=== PATIENT | female | born 1995 | race Caucasian/White ===

== ENCOUNTER → 2020-03-09 22:10 | Observation (INO) ==
[2020-03-09 21:46] LABS: Bacteria,Urine Few per hpf (None-Few); Bilirubin,Urine Negative (Negative); Blood,Urine Small (Negative); Clarity,Urine Clear (Clear); Color,Urine Light-Yellow (Yellow); Glucose,Urine (UA) 70 mg/dL (Normal); Ketones,Urine Negative (Negative); Leukocyte Esterase,Urine Negative (Negative); Mucus,Urine Few per lpf (None-Few); Nitrite,Urine Negative (Negative); PH,Urine 6.5 pH Units (5.0-8.0); Protein,Urine Negative (Neg-Trace); Specific Gravity,Urine 1.015 (1.010-1.025); Squamous Epithelial Cell,Urine Few per hpf (None-Few); Urobilinogen,Urine Normal (Normal); WBC,Urine 0-3 per hpf (0-3)
== END | disposition home or self-care (01) ==
LOC: 1NENULAB
PROVIDERS: ADMIT Advanced Practice Midwife; ATTEND Advanced Practice Midwife

== ENCOUNTER → 2020-03-21 00:33 | Observation (INO) ==
[2020-03-20 23:09] LABS: Amphetamine Screen,Urine Negative ng/mL (Cutoff=1000); Barbiturate Screen,Urine Positive ng/mL (Cutoff=200); Benzodiazepines Screen,Urine Negative ng/mL (Cutoff=200); Cannabinoid Screen,Urine Negative ng/mL (Cutoff = 50); Cocaine Screen,Urine Negative ng/mL (Cutoff= 300); Opiate Screen,Urine Negative ng/mL (Cutoff=300); Phencyclidine Screen,Urine Negative ng/mL (Cutoff=25)
[~2020-03-21 00:33] MED LIST: Metoclopramide 10 MG/2 ML VIAL IVP ONE; Ringers Solution, Lactated 1,000 ML IVC ONE; Ringers Solution, Lactated 1,000 ML IVC SCH
== END | disposition home or self-care (01) ==
LOC: 1NENULAB
PROVIDERS: ADMIT Advanced Practice Midwife; ATTEND Advanced Practice Midwife

== ENCOUNTER → 2020-04-05 02:25 | Observation (INO) | END | disposition home or self-care (01) | LOC: 1NENULAB | PROVIDERS: ADMIT Obstetrics & Gynecology; ATTEND Obstetrics & Gynecology ==

== ENCOUNTER → 2020-05-15 22:42 | Observation (INO) | END | disposition home or self-care (01) | LOC: 1NENULAB | PROVIDERS: ADMIT Obstetrics & Gynecology; ATTEND Obstetrics & Gynecology ==

== ENCOUNTER 2020-05-20 07:48 | Inpatient (IN) ==
[2020-05-20] MEDS ORDERED: Famotidine 20 MG/2 ML VIAL IVP PRN (08:04)
[2020-05-20] MEDS ORDERED: Lidocaine 1% 20 ML MDV INFILT PRN (08:04)
[2020-05-20] MEDS ORDERED: Naloxone 0.4 MG/ML INJ IVP PRN (08:04)
[2020-05-20] MEDS ORDERED: Azithromycin 500 MG in 0.9 % Sodium Chloride 250 ML IVPB PRN (08:04)
[2020-05-20] MEDS ORDERED: Ondansetron 4 MG/2 ML VIAL IVP PRN (08:04)
[2020-05-20] MEDS ORDERED: Metoclopramide 10 MG/2 ML VIAL IVP PRN (08:04)
[2020-05-20] MEDS ORDERED: *HR* FentaNYL (PF) 100 MCG/2 ML VIAL IVP PRN (08:04)
[2020-05-20] MEDS ORDERED: Oxytocin 20 units/ LR 1000 mL 20 UNIT/1,000 ML BAG IVC SCH ×2 (08:15→18:06)
[2020-05-20] MEDS ORDERED: Ringers Solution, Lactated 1,000 ML IVC SCH (08:15)
[2020-05-20 09:05] LABS: Basophils % 0.3 %; Hemoglobin 14.2 g/dL (11.5-15.4); Mean Corpuscular Volume 91.4 fL (83.0-100.0); Red Cell Distribution Width 13.3 % (11.5-14.5)
[2020-05-20 09:06] LABS: Eosinophils # 0.3 K/mcL (0.0-0.6); Eosinophils % 2.6 %; Hematocrit 42.7 % (35.3-44.9); Immature Granulocytes % 0.3 % (0-4); Immature Platelets 3.2 % (1.1-6.1); Lymphocytes # 3.7 K/mcL (0.6-4.6); Lymphocytes % 31.4 %; Mean Corpuscular HGB Conc 33.3 g/dL (31.6-35.5); Mean Corpuscular Hemoglobin 30.4 pg (28.0-33.3); Mean Platelet Volume 9.8 fL (9.4-12.4); Monocytes # 0.9 K/mcL (0.0-1.3); Neutrophils # 6.7 K/mcL (1.6-8.9); Platelet Count 270 K/mcL (140-400); Red Blood Count 4.67 M/mcL (3.82-4.97); Segmented Neutrophils % 57.4 %; White Blood Count 11.7 K/mcL (4.3-11.1)
[2020-05-20 09:21] LABS: Amphetamine Screen,Urine Negative ng/mL (Cutoff=1000); Barbiturate Screen,Urine Positive ng/mL (Cutoff=200); Benzodiazepines Screen,Urine Negative ng/mL (Cutoff=200); Cannabinoid Screen,Urine Negative ng/mL (Cutoff = 50); Cocaine Screen,Urine Negative ng/mL (Cutoff= 300); Opiate Screen,Urine Negative ng/mL (Cutoff=300); Phencyclidine Screen,Urine Negative ng/mL (Cutoff=25)
[2020-05-20] MEDS ORDERED: EPHEDrine 50 MG/ML VIAL IVP PRN (11:03)
[2020-05-20] MEDS ORDERED: Epidural Premix (fent/bupiv) 110 ML EP SCH (11:15)
[2020-05-20] MEDS ORDERED: Ondansetron 4 MG/2 ML VIAL IVP ONE (12:33)
[2020-05-20] MEDS ORDERED: Measles/Mumps/Rubella Vacc 0.5 ML VIAL SQ PRN (18:06)
[2020-05-20] MEDS ORDERED: Ibuprofen 600 MG TABLET PO PRN (18:06)
[2020-05-20] MEDS: Acetaminophen 325 MG TABLET PO PRN (18:22)
[2020-05-21] MEDS: Acetaminophen 325 MG TABLET PO PRN (04:22)
[2020-05-21] MEDS ORDERED: Acetaminophen/Butalbital/CaffeineTABLET PO PRN (04:42)
[2020-05-21 05:17] LABS: Basophils % 0.2 %; Eosinophils # 0.4 K/mcL (0.0-0.6); Eosinophils % 2.3 %; Hematocrit 40.7 % (35.3-44.9); Hemoglobin 13.4 g/dL (11.5-15.4); Immature Granulocytes % 0.4 % (0-4); Lymphocytes # 4.5 K/mcL (0.6-4.6); Lymphocytes % 28.1 %; Mean Corpuscular HGB Conc 32.9 g/dL (31.6-35.5); Mean Corpuscular Hemoglobin 30.3 pg (28.0-33.3); Mean Corpuscular Volume 92.1 fL (83.0-100.0); Mean Platelet Volume 9.3 fL (9.4-12.4); Monocytes # 1.4 K/mcL (0.0-1.3); Monocytes % 8.8 %; Neutrophils # 9.7 K/mcL (1.6-8.9); Platelet Count 252 K/mcL (140-400); Red Blood Count 4.42 M/mcL (3.82-4.97); Red Cell Distribution Width 13.2 % (11.5-14.5); Segmented Neutrophils % 60.2 %; White Blood Count 16.1 K/mcL (4.3-11.1)
[2020-05-21 07:51] VITALS: BP 107/68
[2020-05-21] MEDS ORDERED: *HR* OxyCODONE/APAP 5/325 TABLET PO PRN (08:19)
[2020-05-21] MEDS ORDERED: FLUoxetine 20 MG CAPSULE PO SCH (09:00)
[2020-05-21] MEDS ORDERED: Prenatal Vit/FA 1 EACH TABLET PO SCH (09:00)
[2020-05-21] MEDS ORDERED: Etonogestrel 68 MG IMPLANT IL ONE (10:51)
[2020-05-21] MEDS ORDERED: Lidocaine 1% 20 ML MDV ONE (12:31)
== END 2020-05-21 14:23 | disposition home or self-care (01) | DRG 806 ==
LOC: 1NENULAB 07:48 → 1NENUOBS 17:06
PROVIDERS: ADMIT Obstetrics & Gynecology; ATTEND Obstetrics & Gynecology

== ENCOUNTER 2020-07-20 20:53 | Observation (INO) ==
[2020-07-20 21:34] LABS: Basophils % 0.6 %; Eosinophils # 0.3 K/mcL (0.0-0.6); Eosinophils % 4.6 %; Hematocrit 47.2 % (35.3-44.9); Hemoglobin 15.4 g/dL (11.5-15.4); Immature Granulocytes % 0.2 % (0-4); Lymphocytes # 2.9 K/mcL (0.6-4.6); Mean Corpuscular HGB Conc 32.6 g/dL (31.6-35.5); Mean Corpuscular Hemoglobin 29.4 pg (28.0-33.3); Mean Corpuscular Volume 90.2 fL (83.0-100.0); Mean Platelet Volume 8.9 fL (9.4-12.4); Monocytes # 0.8 K/mcL (0.0-1.3); Monocytes % 12.1 %; Neutrophils # 2.3 K/mcL (1.6-8.9); Platelet Count 399 K/mcL (140-400); Red Blood Count 5.23 M/mcL (3.82-4.97); Red Cell Distribution Width 12.5 % (11.5-14.5); Segmented Neutrophils % 36.5 %; White Blood Count 6.3 K/mcL (4.3-11.1)
[2020-07-20] MEDS ORDERED: *HR* LORazepam 2 MG/ML VIAL IVP ONE (21:41)
[2020-07-20 21:54] LABS: Bilirubin,Urine Negative (Negative); Blood,Urine Moderate (Negative); Clarity,Urine Clear (Clear); Color,Urine Light-Yellow (Yellow); Glucose,Urine (UA) Normal (Normal); Hyaline Casts,Urine Few per lpf (None Seen); Ketones,Urine Negative (Negative); Leukocyte Esterase,Urine Negative (Negative); Mucus,Urine Few per lpf (None-Few); Nitrite,Urine Negative (Negative); Protein,Urine Trace mg/dL (Neg-Trace); RBC,Urine 15-30 per hpf (0-3); Specific Gravity,Urine 1.018 (1.010-1.025); Squamous Epithelial Cell,Urine Few per hpf (None-Few); Urobilinogen,Urine Normal (Normal)
[2020-07-20 21:58] LABS: Alanine Aminotransferase 13 Units/L (7-52); Albumin 4.7 g/dL (3.5-5.7); Albumin/Globulin Ratio 1.6 (1.1-2.2); Alkaline Phosphatase 68 Units/L (34-104); Aspartate Amino Transferase 12 Units/L (13-39); BUN/Creatinine Ratio 4 (6-26); Bilirubin,Direct 0.1 mg/dL (0.0-0.2); Bilirubin,Indirect 0.3 mg/dL (0.0-1.0); Bilirubin,Total 0.4 mg/dL (0.3-1.0); Blood Urea Nitrogen 4 mg/dL (6-20); Calcium 9.8 mg/dL (8.6-10.3); Carbon Dioxide 20 mEq/L (23-29); Chloride 106 mEq/L (98-107); Creatine Kinase 65 Units/L (30-223); Glucose 104 mg/dL (70-105); Magnesium 2.3 mg/dL (1.6-2.6); Osmolality,Calculated 285 (280-300); Potassium 3.4 mEq/L (3.5-5.1); Sodium 139 mEq/L (136-145); Total Protein 7.7 g/dL (6.4-8.9); eGFR For African Americans > 60 (> 60); eGFR For Non-African Americans > 60 (> 60)
[2020-07-20 22:09] LABS: Thyroid Stimulating Hormone 0.515 mcIU/mL (0.340-5.600)
[2020-07-20 22:59] LABS: Troponin I < 0.03 ng/mL (< 0.04)
[2020-07-20 23:04] LABS: Amphetamine Screen,Urine Negative ng/mL (Cutoff=1000); Barbiturate Screen,Urine Negative ng/mL (Cutoff=200); Benzodiazepines Screen,Urine Positive ng/mL (Cutoff=200); Cannabinoid Screen,Urine Negative ng/mL (Cutoff = 50); Cocaine Screen,Urine Negative ng/mL (Cutoff= 300); Opiate Screen,Urine Positive ng/mL (Cutoff=300); Phencyclidine Screen,Urine Negative ng/mL (Cutoff=25)
[2020-07-21] MEDS ORDERED: Naloxone 0.4 MG/ML INJ IVP PRN (01:52)
[2020-07-21] MEDS ORDERED: Ondansetron 4 MG/2 ML VIAL IVP PRN (01:52)
[2020-07-21] MEDS ORDERED: Acetaminophen 325 MG TABLET PO PRN (01:52)
[2020-07-21 04:33] LABS: Hematocrit 43.9 % (35.3-44.9); Hemoglobin 14.3 g/dL (11.5-15.4); Mean Corpuscular HGB Conc 32.6 g/dL (31.6-35.5); Mean Corpuscular Hemoglobin 29.4 pg (28.0-33.3); Mean Corpuscular Volume 90.1 fL (83.0-100.0); Platelet Count 350 K/mcL (140-400); Red Blood Count 4.87 M/mcL (3.82-4.97); Red Cell Distribution Width 12.4 % (11.5-14.5); White Blood Count 7.1 K/mcL (4.3-11.1)
[2020-07-21 04:52] LABS: BUN/Creatinine Ratio 5 (6-26); Blood Urea Nitrogen 4 mg/dL (6-20); Calcium 9.5 mg/dL (8.6-10.3); Carbon Dioxide 24 mEq/L (23-29); Chloride 107 mEq/L (98-107); Glucose 75 mg/dL (70-105); Osmolality,Calculated 286 (280-300); Potassium 3.3 mEq/L (3.5-5.1); Sodium 140 mEq/L (136-145); eGFR For African Americans > 60 (> 60); eGFR For Non-African Americans > 60 (> 60)
[2020-07-21 04:53] LABS: Troponin I < 0.03 ng/mL (< 0.04)
[2020-07-21 05:06] LABS: Thyroid Stimulating Hormone 0.426 mcIU/mL (0.340-5.600)
[2020-07-21] MEDS ORDERED: ALPRAZolam 0.5 MG TABLET PO PRN (15:00)
[2020-07-21] MEDS: Pantoprazole 40 MG VIAL IVP SCH (15:34)
[2020-07-21] MEDS: *HR* LORazepam 0.5 MG TABLET PO PRN (15:35)
[2020-07-21] MEDS: *HR* OxyCODONE/APAP 5/325 TABLET PO PRN (18:41)
[2020-07-21] MEDS ORDERED: tiZANidine 4 MG TABLET PO SCH (21:00)
[2020-07-22] MEDS: *HR* LORazepam 0.5 MG TABLET PO PRN ×2 (06:00→14:19)
[2020-07-22 06:16] LABS: Basophils # 0.1 K/mcL (0.0-0.2); Basophils % 0.8 %; Eosinophils # 0.4 K/mcL (0.0-0.6); Eosinophils % 5.9 %; Hemoglobin 14.6 g/dL (11.5-15.4); Immature Granulocytes % 0.2 % (0-4); Lymphocytes # 2.5 K/mcL (0.6-4.6); Lymphocytes % 40.7 %; Mean Corpuscular HGB Conc 33.2 g/dL (31.6-35.5); Mean Corpuscular Hemoglobin 30.2 pg (28.0-33.3); Mean Corpuscular Volume 90.9 fL (83.0-100.0); Mean Platelet Volume 8.9 fL (9.4-12.4); Monocytes # 0.7 K/mcL (0.0-1.3); Monocytes % 11.5 %; Neutrophils # 2.5 K/mcL (1.6-8.9); Platelet Count 362 K/mcL (140-400); Red Blood Count 4.84 M/mcL (3.82-4.97); Red Cell Distribution Width 12.5 % (11.5-14.5); Segmented Neutrophils % 40.9 %; White Blood Count 6.2 K/mcL (4.3-11.1)
[2020-07-22 06:35] LABS: BUN/Creatinine Ratio 13 (6-26); Blood Urea Nitrogen 11 mg/dL (6-20); Calcium 9.6 mg/dL (8.6-10.3); Carbon Dioxide 23 mEq/L (23-29); Chloride 105 mEq/L (98-107); Glucose 93 mg/dL (70-105); Osmolality,Calculated 283 (280-300); Potassium 3.7 mEq/L (3.5-5.1); Sodium 137 mEq/L (136-145); eGFR For African Americans > 60 (> 60); eGFR For Non-African Americans > 60 (> 60)
[2020-07-22] MEDS ORDERED: *HR* Enoxaparin 40 MG/0.4 ML SYRINGE SQ SCH (07:00)
[2020-07-22] MEDS: Pantoprazole 40 MG VIAL IVP SCH (09:47)
[2020-07-22] MEDS: *HR* OxyCODONE/APAP 5/325 TABLET PO PRN ×2 (09:47→15:41)
[2020-07-22] MEDS ORDERED: Acetaminophen IV 1,000 MG/100 ML BAG IVPB ONE (13:01)
[2020-07-22 14:55] VITALS: BP 94/61
[2020-07-22] MEDS ORDERED: Cholecalciferol (D-3) 1,000 UNIT (25MCG) TABLET PO SCH (21:00)
== END 2020-07-22 15:55 | disposition home or self-care (01) ==
LOC: 3ANU 20:53 → EMEROOARM 20:53 → SUATTDRO 07-21 01:31 → 3ANU 07-21 02:30
PROVIDERS: ADMIT Internal Medicine; ATTEND Pharmacist

== ENCOUNTER 2021-05-16 16:01 | Inpatient (IN) ==
[2021-05-16 19:00] LABS: Basophils # 0.1 K/mcL (0.0-0.2); Basophils % 0.7 %; Eosinophils # 0.5 K/mcL (0.0-0.6); Eosinophils % 4.8 %; Hematocrit 45.9 % (35.3-44.9); Hemoglobin 15.7 g/dL (11.5-15.4); Immature Granulocytes % 0.2 % (0-4); Lymphocytes % 44.8 %; Mean Corpuscular HGB Conc 34.2 g/dL (31.6-35.5); Mean Corpuscular Hemoglobin 30.6 pg (28.0-33.3); Mean Corpuscular Volume 89.5 fL (83.0-100.0); Monocytes # 0.9 K/mcL (0.0-1.3); Neutrophils # 3.9 K/mcL (1.6-8.9); Platelet Count 360 K/mcL (140-400); Red Blood Count 5.13 M/mcL (3.82-4.97); Red Cell Distribution Width 11.8 % (11.5-14.5); Segmented Neutrophils % 40.5 %; White Blood Count 9.7 K/mcL (4.3-11.1)
[2021-05-16 19:02] LABS: Lymphocytes # 4.4 K/mcL (0.6-4.6)
[2021-05-16 19:03] LABS: Amphetamine Screen,Urine Positive ng/mL (Cutoff=1000); Barbiturate Screen,Urine Negative ng/mL (Cutoff=200); Benzodiazepines Screen,Urine Positive ng/mL (Cutoff=200); Cannabinoid Screen,Urine Negative ng/mL (Cutoff = 50); Cocaine Screen,Urine Negative ng/mL (Cutoff= 300); Opiate Screen,Urine Negative ng/mL (Cutoff=300); Phencyclidine Screen,Urine Negative ng/mL (Cutoff=25)
[2021-05-16 19:11] LABS: Acetaminophen < 10 mcg/mL (10-20); BUN/Creatinine Ratio 5 (6-26); Blood Urea Nitrogen 4 mg/dL (6-20); Calcium 10.1 mg/dL (8.6-10.3); Carbon Dioxide 27 mEq/L (23-29); Chloride 105 mEq/L (98-107); Chol/HDL Ratio 4.4 (0-4.9); Cholesterol 200 mg/dL (< 200); Ethanol < 10 mg/dL (Less than 10); Glucose 85 mg/dL (70-105); HDL Cholesterol 45 mg/dL (40-59); LDL Cholesterol,Calculated 123 mg/dL (< 100); Osmolality,Calculated 286 (280-300); Potassium 3.6 mEq/L (3.5-5.1); Salicylate < 2.5 mg/dL (15.0-30.0); Sodium 140 mEq/L (136-145); Triglycerides 161 mg/dL (< 150); eGFR For African Americans > 60 (> 60); eGFR For Non-African Americans > 60 (> 60)
[2021-05-16 19:15] LABS: Estimated Average Glucose 105 mg/dl; Hemoglobin A1C 5.3 %
[2021-05-16 19:22] LABS: Bacteria,Urine Few per hpf (None-Few); Bilirubin,Urine Negative (Negative); Blood,Urine Trace (Negative); Clarity,Urine Clear (Clear); Color,Urine Colorless (Yellow); Glucose,Urine (UA) Normal (Normal); Ketones,Urine Negative (Negative); Leukocyte Esterase,Urine Negative (Negative); Mucus,Urine Few per lpf (None-Few); Nitrite,Urine Negative (Negative); PH,Urine 6.5 pH Units (5.0-8.0); Protein,Urine Negative (Neg-Trace); RBC,Urine 0-3 per hpf (0-3); Specific Gravity,Urine 1.008 (1.010-1.025); Squamous Epithelial Cell,Urine Few per hpf (None-Few); Urobilinogen,Urine Normal (Normal); WBC,Urine 0-3 per hpf (0-3)
[2021-05-16 22:16] LABS: Influenza A PCR Negative (Negative); Influenza B PCR Negative (Negative); Resp. Syncytial Virus PCR Negative (Negative)
[2021-05-16 23:17] LABS: SARS-CoV-2 by PCR (In House) Negative (Negative)
[2021-05-16] MEDS ORDERED: *HR* LORazepam 2 MG/ML VIAL IM PRN (23:44)
[2021-05-16] MEDS ORDERED: haloperidoL 5 MG TABLET PO PRN (23:44)
[2021-05-16] MEDS ORDERED: traZODone 50 MG TABLET PO PRN (23:44)
[2021-05-16] MEDS ORDERED: *HR* LORazepam 1 MG TABLET PO PRN (23:44)
[2021-05-16] MEDS ORDERED: Haloperidol Lactate 5 MG/ML VIAL IM PRN (23:44)
[2021-05-17] MEDS: tiZANidine 4 MG TABLET PO PRN ×2 (01:31→21:27)
[2021-05-17] MEDS: risperiDONE 1 MG TABLET PO SCH ×4 (01:31→21:27)
[2021-05-17] MEDS: Nicotine 21 MG PATCH.TD24 TD SCH (09:39)
[2021-05-17] MEDS: hydrOXYzine pamoate 25 MG CAPSULE PO PRN ×2 (09:40→21:27)
[2021-05-17] MEDS ORDERED: Ondansetron ODT 4 MG TAB.RAPDIS PO PRN (11:12)
[2021-05-17] MEDS ORDERED: NON-FORMULARY MEDICATION 1 EACH EACH (Omeprazole [Prilosec] 40 MG Capsule.Dr) PO SCH (11:15)
[2021-05-17] MEDS: ALPRAZolam 1 MG TABLET PO PRN ×2 (11:47→17:03)
[2021-05-17] MEDS: Loratadine 10 MG TABLET PO SCH (11:48)
[2021-05-17] MEDS: Folic Acid 1 MG TABLET PO SCH (11:48)
[2021-05-17] MEDS: Cyanocobalamin (B-12) 1,000 MCG TABLET PO SCH (11:49)
[2021-05-17] MEDS: Cholecalciferol (D-3) 1,000 UNIT (25MCG) TABLET PO SCH (11:49)
[2021-05-17] MEDS: Multivit/Ca/Min/Fe/FA 1 TAB TABLET PO SCH (11:50)
[2021-05-17] MEDS: Pyridoxine (B-6) 50 MG TABLET PO SCH (12:24)
[2021-05-17] MEDS ORDERED: Acetaminophen 325 MG TABLET PO PRN (15:09)
[2021-05-17] MEDS ORDERED: UBRELVY 50 MG PO PRN (20:12)
[2021-05-17 21:49] VITALS: TEMP 98.4
[2021-05-18] MEDS: Folic Acid 1 MG TABLET PO SCH (09:48)
[2021-05-18] MEDS: Multivit/Ca/Min/Fe/FA 1 TAB TABLET PO SCH (09:48)
[2021-05-18] MEDS: Loratadine 10 MG TABLET PO SCH (09:49)
[2021-05-18] MEDS: risperiDONE 1 MG TABLET PO SCH (09:49)
[2021-05-18] MEDS: Cyanocobalamin (B-12) 1,000 MCG TABLET PO SCH (09:49)
[2021-05-18] MEDS: Cholecalciferol (D-3) 1,000 UNIT (25MCG) TABLET PO SCH (09:49)
[2021-05-18] MEDS: ALPRAZolam 1 MG TABLET PO PRN (09:50)
[2021-05-18] MEDS: Pyridoxine (B-6) 50 MG TABLET PO SCH (09:50)
[2021-05-18] MEDS: Nicotine 21 MG PATCH.TD24 TD SCH (10:02)
[2021-05-18 11:56] VITALS: BP 130/85; PULSE 122; O2SAT 99
[2021-05-18] MEDS ORDERED: HUMIRA 40 MG/0.4 ML SQ SCH (21:00)
== END 2021-05-18 12:35 | disposition home or self-care (01) | DRG 880 ==
LOC: EMEROOARM 16:01 → 1ANU 23:30 → INTOOBSV 23:30 → 1ANU 05-17 00:32
PROVIDERS: ADMIT Psychiatry & Neurology Psychiatry; ATTEND Psychiatry & Neurology Psychiatry